=== PATIENT | female | born 1970 | race Caucasian/White ===

== ENCOUNTER 2016-09-23 23:07 | Emergency (ER) | payer SELFPAY ==
[2016-09-23 23:17] VITALS: TEMP 97.5
[2016-09-23] MEDS ORDERED: cefTRIAXone 1 GM VIAL IM ONE (23:40)
[2016-09-23] MEDS ORDERED: FAMOTIDINE 20 MG TAB PO ONE (23:40)
[2016-09-23] MEDS ORDERED: TDAP ADULT 0.5 ML INJ (BOOSTRIX) IM ONE (23:40)
[2016-09-23] MEDS ORDERED: diphenhydrAMINE 25 MG CAP PO ONE (23:40)
--- NOTE | 2016-09-23 23:48 | EDPHY ---
H & P Time Seen by Provider: 09/23/16 23:14 HPI/ROS: CHIEF COMPLAINT: arm pain and swelling since insect bite, yellow jacket HISTORY OF PRESENT ILLNESS: this is a previously healthy 46-year-old female was working in the [employer] at home. She was stung by a yellow jacket to the inner aspect of the midportion of the left forearm at approximately 6:30 p.m.. Within an hour to an hour and a half she developed a moderate amount of swelling. Over the ensuing 3 hours he became more and more painful and swollen. Initially it had been slightly itchy but it is really only painful now. The pain itself seems to be localized at the site of the insect bite as well as radiating all way up to the axilla and the like. She notes that she is sore to touch in the axilla. At the same token while the left forearm is painful, swollen warm and red, there are no red streaks. She feels no problems related to a systemic reaction. There is no urticaria or distant skin changes. She has no angioedema or swelling of the tongue or throat. There is no shortness of breath or difficulty swallowing and there is no sense of cardiac collapse or lightheadedness, nor feeling faint. In the past she has had a history of a large local reactions, but not to this extent nor to this sense of pain. She took Benadryl 50 mg p.o. with minimal relief. She is not experiencing any side effects from this such as bowel dysmotility or excessive dry mouth. She also took a tablet of Oxy something. The man with her cannot tell us whether it is our IR or Contin, nor the strength, and will get back with us later P: Worse with movement and touching the left forearm Q: Achiness R: Left form words swollen radiating up into the left axilla S: Moderate to severe T: Progressive in onset since 08/15 when she had the Hymenoptera bite to the left mid forearm REVIEW OF SYSTEMS: Constitutional: No fever, no chills. Eyes: No changes. ENT: No swelling to the tongue, lips, hypopharynx, or throat. No change in her voice Cardiovascular: No chest pain, no palpitations. Respiratory: No cough, shortness of breath, or wheezing. Gastrointestinal: No nausea vomiting or diarrhea. No abdominal pain. Musculoskeletal: No back pain. Skin: No rashes, though there is a larger swelling left forearm which prompted to come in. 10 point ROS otherwise negative Smoking Status: Never smoked Physical Exam: General Appearance: Alert, no distress. Afebrile. Normal phonation. No respiratory distress. Eyes: Pupils equal and round no pallor or injection. No icterus ENT, Mouth: Mucous membranes moist. Pharynx without erythema or exudate, no swelling of the tongue or the uvula.. TM Clear. Neck: No adenopathy. Supple. No JVD. Trachea in midline. Respiratory: There are no retractions, lungs are clear to auscultation. Cardiovascular: Regular rate and rhythm. Abdomen: Soft and nontender, no masses, bowel sounds normal. Neurological: Ox3. Gait nl. Skin: Warm and dry. Over the mid aspect of the left forearm there is a puncture wound. I have examined this and there is no signs AV stinger present. There is mild soft tissue swelling with warmth and faint erythema extending from the wrist to the elbow encompassing approximately 24 cm. I do not feel a epitrochlear node per se however she is quite uncomfortable with exam in that region. Furthermore I do not feel any nodes present in the left axilla however clearly bothers her to touch that area. There is a faint question of a lymphangitic spread in the midportion of the upper arm, though not definitive Musculoskeletal: No joint swelling. Extremities: No edema. Psychiatric: Normal affect, appears to be in pain. There is no agitation . Constitutional: Initial Vital Signs Temperature (C) 36.4 C 09/23/16 23:15 Heart Rate 61 09/23/16 23:15 Respiratory Rate 15 09/23/16 23:15 Blood Pressure 150/94 H 09/23/16 23:15 O2 Sat (%) 100 09/23/16 23:15 O2 Delivery Mode Room Air Allergies/Adverse Reactions: No Known Allergies Allergy (Verified 03/03/12 14:22) Home Medications: Medication Instructions Recorded Miscellaneous Medical Supply [NO 1 ea MISC AD 03/03/12 HOME MEDS] Cephalexin [Keflex (*)] 500 mg PO TID #15 cap 09/23/16 Famotidine [Pepcid 20 MG (*)] 40 mg PO BID #16 tab 09/23/16 Hydrocodone/APAP 5/325 [[place] 1 - 2 tab PO Q6H PRN #12 tab 09/23/16 5/325 (*)] diphenhydrAMINE HCL [Benadryl] 75 mg PO QID #36 capsule 09/23/16 Medical Decision Making ED Course/Re-evaluation: She was given a tetanus shot For the most part this appeared to be a local reaction however it certainly much more extensive than the typical large local reaction as noted. Certainly the radiation extent of pain makes when consider a cellulitic type process though seems to be a little fast. We will go ahead and get her started on a shot of Rocephin to initiate antibiotic therapy immediately, followed by p.o. Keflex 500 three times daily for a week. She does not have a family physician. Thus I will refer to Dr. Sexton, outpatient medicine on-call with a backup of Dr. vu infectious disease in case she is not able to get in. She noted check in 1-2 days. There is no signs to exhibit this to be a systemic or anaphylactic reaction. Thus no epinephrine is needed now nor does she need to have any in the future. I have talked to her about avoiding further Hymenoptera exposure and particular to avoid any yellow clothing. She has already taken a pain pill. [place] Prescription Drug Monitoring Program checked: Though she is in the database, no activity in last year Thus the discharge plan will consist of: [place] Keflex Pepcid Benadryl Ibuprofen and Tylenol when not taking the [place] The differential diagnosis includes but is not limited to: Local reaction, allergic reaction, cellulitis, puncture wound Departure - Departure Disposition: Home, Routine, Self-Care Clinical Impression: Allergic reaction to bee sting, Cellulitis of arm, left Bee sting reaction Qualifiers: Encounter type: initial encounter Injury intent: accidental or unintentional Qualified Code(s): T63.441A - Toxic effect of venom of bees, accidental ( unintentional), initial encounter Puncture wound of arm, left, complicated Qualifiers: Encounter type: initial encounter Qualified Code(s): S41.132A - Puncture wound without foreign body of left upper arm, initial encounter Condition: Good Instructions: Cellulitis (ED), Insect Bite or Sting (ED), Puncture Wound (ED) Additional Instructions: You will need a recheck in 1-2 days. The she has been referred to Dr. Sexton. However if Dr. Sexton is not available then consider checking with Dr. Nevarez. Once home, call us with the actual Oxy formulation the you took. We need to know whether this was IR or OxyContin as well as the sstrength, so as to advised to when you next dose of pain medicine might be needed. This seems to be a local reaction thus does not require any adrenaline now or down the line. I fully expect the area of erythema and redness and swelling to go lower into the inner aspect of the biceps of the upper arm by morning, as her to elevate her arm all day night long. However if the pain is getting a lot worse and not being aided by the pain medicine, then you may need to come back to the ER. Your next dose the antibiotic is due tomorrow evening. While on the antibiotics take yogurt with active cultures twice daily For pain management take the [place] especially at night. During the daytime often the combination of ibuprofen 600 and Tylenol 1000 mg works well on a 3 times a day basis: Tylenol 1000 mg and 600 mg every 8 hours. Referrals: NONE *PRIMARY CARE P,. [Primary Care Provider] - As per Instructions Sukhdev Sexton MD [[facility] Primary Care Provider] - As per Instructions Jake Nevarez MD [Medical Doctor] - As per Instructions Stand Alone Forms: Work Excuse Prescriptions: Cephalexin [Keflex (*)] 500 mg PO TID #15 cap diphenhydrAMINE HCL [Benadryl] 75 mg PO QID #36 capsule Famotidine [Pepcid 20 MG (*)] 40 mg PO BID #16 tab Hydrocodone/APAP 5/325 [[place] 5/325 (*)] 1 - 2 tab PO Q6H PRN #12 tab PRN Reason: moderate to severe pain
[2016-09-23] MEDS ORDERED: OXYCODONE/APAP 5/325MG PREPACK#4 BTL TAKEHOME ONE (23:54)
[2016-09-24 00:29] VITALS: BP 124/87; PULSE 60; RESP 16; O2SAT 98
== END 2016-09-24 00:40 | disposition home or self-care (01) ==
LOC: CED 23:07
DX: T63.441A Toxic effect of venom of bees, accidental (unintentional), initial encounter (principal); S41.132A Puncture wound without foreign body of left upper arm, initial encounter; L03.114 Cellulitis of left upper limb; Z23 Encounter for immunization; X58.XXXA Exposure to other specified factors, initial encounter
CPT/HCPCS: J0696